=== PATIENT | male | born 1935 | race Caucasian/White ===

== ENCOUNTER 2017-02-12 17:48 | Inpatient (IN) ==
[2017-02-12] MEDS ORDERED: Ondansetron 4 MG/2 ML VIAL IVP PRN (22:47)
[2017-02-12] MEDS ORDERED: Naloxone 0.4 MG/ML INJ IVP PRN (22:47)
--- NOTE | 2017-02-12 22:55 | Internal Med History&Physical ---
Date of Encounter: 02/12/17 Time of Encounter: 22:15 Assessment and Plan (1) TIA (transient ischemic attack) Current visit: Yes Status: Acute Difficult to assess due to poor history, possible TIA. Patient likely at baseline at this time. CT head in the emergency room showed right frontal infarcts, could be subacute or chronic. Check bedside swallow evaluation and resume diet as tolerated. Continue aspirin and statin. Check lipid panel. Check MRI brain, bilateral carotid Doppler and echocardiogram to rule out acute stroke and etiology. Continue neuro checks every 4 hourly. Physical and occupational therapy evaluation. Qualifiers: Transient cerebral ischemia type: unspecified Qualified Code(s): G45.9 - Transient cerebral ischemic attack, unspecified (2) Hyperlipidemia Current visit: Yes Status: Chronic Continue statin and check lipid panel in am. Qualifiers: Hyperlipidemia type: unspecified Qualified Code(s): E78.5 - Hyperlipidemia , unspecified (3) LATANYA (acute kidney injury) Current visit: Yes Status: Acute Serum creatinine in the emergency room was noted to be 1.3, no baseline available. He could be having a component of chronic kidney disease. Continue to monitor serum creatinine closely. (4) Low back pain Current visit: Yes Status: Acute Acute on chronic back pain. CT lumbar spine from September 2016 showed degenerative disc disease at multiple levels along with T12 compression fracture , which is chronic. Continue pain control with PRN IV Morphine and PO [place]ria; check MRI L-spine if persistent and severe pain; Qualifiers: Chronicity: acute Back pain laterality: midline Sciatica presence: without sciatica Qualified Code(s): M54.5 - Low back pain Internal Medicine - H&P: HPI Chief complaint: Low back pain, left-sided weakness Admitted From: Emergency Dept Plans for Post Hospital Care: Home History of present illness: Mr. Johnson is a 81 year old male with history of remote CVA and hypertension was reportedly brought in by family with complaints of slurred speech and possible left-sided weakness for at least the last 2-3 days. Patient reports that he present to the emergency room today due to acute on chronic low back pain associated with left leg weakness, which is chronic for him since left hip surgery last year. He reports no blurred vision or new slurred speech or paresthesias. He lives alone and is ADL independent at baseline, ambulates with his walker. He also has history of previous stroke with residual left- sided weakness according to him. No chest pain, shortness of breath, palpitations or any other complaints. Past Med Surg Social Fam HX - Past Medical History Medical history: CVA, hyperlipidemia, hypertension, osteoporosis, TIA, other ( Seasonal allergies, GERD) Psychiatric history: no psych history - Past Surgical History Surgical History: hip replacement (Left total hip replacement, twice), orthopedic, other (Right rotator cuff tear repair) - Social History Smoking Status: Never smoker Smokeless Tobacco Status: Yes (snuff) Alcohol use: none Drug use: none Occupational status: retired Current living situation: Home - Independent Activity Level: Uses cane/walker Recent Out of Country Travel Within the Last 8 Weeks: No Exposure or Possible Exposure to Illness During Travel: No - Family History Mother Living Status: Father Living Status: Internal Medicine - H&P: Meds Aspirin 81 mg PO DAILY 01/30/16 [History] Atorvastatin [Lipitor] 10 mg PO DAILY 01/30/16 [History] Ferrous Sulfate 324 mg PO DAILY 01/30/16 [History] Lansoprazole [Prevacid] 30 mg PO DAILY 01/30/16 [History] Loratadine [Allergy Relief] 10 mg PO DAILY 01/30/16 [History] Alendronate Sodium [Fosamax] 70 mg PO QWEEK 07/27/16 [History] Tramadol HCl [Ultram] 50 mg PO QID PRN 07/27/16 [History] 3 Allergy/AdvReac Type Severity Reaction Status Date / Time No Known Drug Allergies Allergy See Verified 01/30/16 14:46 Comments All Systems PM: A 10-system review of systems was performed and is negative for pertinent findings except as documented above in the HPI. - Constitutional Constitutional: no chills, no fever(s), no night sweats - EENT Eyes: no change in vision, no discharge, no pain, no photophobia Ears: no ear discharge, no ear pain, no tinnitus Nose, mouth and throat: no dysphagia, no nasal discharge, no neck pain, no sore throat - Cardiovascular Cardiovascular ROS IM: no chest pain, no diaphoresis, no dyspnea, no lightheadedness, no palpitations, no syncope - Respiratory Respiratory: no cough, no dyspnea, no wheezing, no excessive phlegm production - Gastrointestinal Gastrointestinal: no abdominal pain, no diarrhea, no hematemesis, no hematochezia, no melena, no nausea, no vomiting - Musculoskeletal Musculoskeletal ROS IM: back pain - Integumentary Integumentary IM: no rash, no unusual bruising - Neurological Neurological ROS: abnormal speech, lack of coordination, tremor(s), weakness - Hematologic/Lymphatic Hematologic/Lymphatic: no easy bruising - Constitutional Vitals: Temp Pulse Resp BP Pulse Ox 97.8 F 77 18 145/74 95 02/12/17 20:24 02/12/17 20:24 02/12/17 20:24 02/12/17 20:24 02/12/17 20:24 General appearance: Present: A&O X 3 (dysphasia), answers questions appropriately - Respiratory Respiratory exam: Present: CTAB (coarse breath sounds B/L). Absent: accessory muscle use, rales, rhonchi, wheezes - Cardiovascular Cardiovascular exam: Present: RRR, +S1, +S2. Absent: diastolic murmur, gallop, rubs, systolic murmur - GI/Abdominal GI/Abdominal exam: Present: normal bowel sounds, soft, no peritoneal signs. Absent: distended, tenderness - Neurological Exam Neurological exam: Present: CN II-XII intact, oriented X3, no focal deficits ( left LE motor power 4/5, 5/5 in otehr extremities). Absent: pronater drift, facial droop, speech deficit - Skin Skin exam: Present: dry, intact Internal Med - H&P Results - EKG Data -: EKG Interpreted by Myself (Normal sinus rhythm with sinus problems, saad septal infarct) EKG shows normal: sinus rhythm Rate: normal
[2017-02-13] MEDS: *HR* OxyCODONE Immed Rel 5 MG TABLET PO PRN (00:35)
[2017-02-13] MEDS: Acetaminophen 325 MG TABLET PO PRN (05:40)
[2017-02-13 06:30] LABS: Basophils % 0.7 %; Hematocrit 36.2 % (37.5-50.1); Immature Granulocytes % 0.2 % (0-4); Lymphocytes # 0.7 K/mcL (0.6-4.6); Lymphocytes % 15.3 %; Mean Corpuscular HGB Conc 33.1 g/dL (31.6-35.5); Mean Corpuscular Hemoglobin 28.6 pg (28.0-33.3); Mean Corpuscular Volume 86.4 fL (83.0-100.0); Mean Platelet Volume 9.2 fL (9.4-12.4); Monocytes # 0.6 K/mcL (0.0-1.3); Neutrophils # 3.1 K/mcL (1.6-8.9); Platelet Count 117 K/mcL (140-400); Red Blood Count 4.19 M/mcL (4.19-5.50); Red Cell Distribution Width 13.2 % (11.5-14.5); Segmented Neutrophils % 69.8 %
[2017-02-13 06:44] LABS: BUN/Creatinine Ratio 13 (6-26); Blood Urea Nitrogen 12 mg/dL (8-23); Calcium 8.3 mg/dL (8.6-10.3); Carbon Dioxide 24 mEq/L (23-29); Chloride 103 mEq/L (98-107); Chol/HDL Ratio 3.3 (0-4.9); Cholesterol 105 mg/dL (< 200); Glucose 90 mg/dL (70-105); HDL Cholesterol 32 mg/dL (40-59); LDL Cholesterol,Calculated 56 mg/dL (0-99); Osmolality,Calculated 273 (280-300); Potassium 4.1 mEq/L (3.5-5.1); Sodium 132 mEq/L (136-145); Triglycerides 87 mg/dL (< 150); eGFR For African Americans > 60 (> 60); eGFR For Non-African Americans > 60 (> 60)
[2017-02-13] MEDS: Aspirin 81 MG TAB.CHEW PO SCH (10:45)
[2017-02-13] MEDS: *HR* Morphine 2 MG/ML SYRINGE IVP PRN (10:58)
--- NOTE | 2017-02-13 15:54 | Internal Med Progress Note ---
Date of Encounter: 02/13/17 Time of Encounter: 10:25 - Assessment and plan (1) TIA (transient ischemic attack) Current Visit: Yes Status: Acute Assessment and plan: MRI of the brain does not show any acute infarcts. Patient's symptoms have subsided. 40-59% stenosis bilaterally. 2-D echocardiogram shows EF of 54% with mild left frontal and diastolic dysfunction. No PFO. Patient may have had a TIA but no acute stroke. Will continue aspirin and statin. No changes to medication regimen at this time. Continue PTOT. Moderate risk for complications. Qualifiers: Transient cerebral ischemia type: other Qualified Code(s): G45.8 - Other transient cerebral ischemic attacks and related syndromes (2) LATANYA (acute kidney injury) Current Visit: Yes Status: Resolved Assessment and plan: Back to baseline. (3) Hyperlipidemia Current Visit: Yes Status: Chronic Assessment and plan: Continue Lipitor. Patient has normal LDL. Total cholesterol 105. Qualifiers: Hyperlipidemia type: unspecified Qualified Code(s): E78.5 - Hyperlipidemia , unspecified (4) Low back pain Current Visit: Yes Status: Acute Assessment and plan: Acute on chronic low back pain. Will treat symptomatically. PTOT consult. Recommend placement to skilled rehabilitation. Will consult social service manager to make necessary arrangements. Qualifiers: Chronicity: acute Back pain laterality: midline Sciatica presence: without sciatica Qualified Code(s): M54.5 - Low back pain - Subjective Interval history: Patient is doing well this morning. Does not have any known longer reporting focal weakness but does continue to have generalized weakness in his upper and lower extremities. No slurred speech. No facial droop - Constitutional Vitals: Temp Pulse Resp BP Pulse Ox 99.7 F H 84 16 121/67 94 02/13/17 10:56 02/13/17 13:37 02/13/17 13:37 02/13/17 10:56 02/13/17 10:56 General appearance: Present: A&O X 3, answers questions appropriately - Neck Neck exam general surgery: Present: supple, trachea midline. Absent: lymphadenopathy - Respiratory Respiratory exam: Present: CTAB. Absent: accessory muscle use, rales, rhonchi, wheezes - Cardiovascular Cardiovascular exam: Present: RRR, +S1, +S2. Absent: diastolic murmur, gallop, rubs, systolic murmur - GI/Abdominal GI/Abdominal exam: Present: normal bowel sounds, soft, no peritoneal signs. Absent: distended, tenderness - Extremities Exam Extremities exam: Present: warm, radial pulses palpable and symmetrical. Absent : calf tenderness, cyanotic, pedal edema - Neurological Exam Neurological exam: Present: alert, CN II-XII intact, oriented X3, no focal deficits, strengths equal and symetr throughout. Absent: facial droop, speech deficit Internal Medicine: Result - Labs CBC & Chem 7: 02/13/17 06:18 02/13/17 06:18 Labs: Short CBC 02/13/17 Range/Units 06:18 WBC 4.4 (4.3-11.1) K/mcL Hgb 12.0 L (12.9-16.9) g/dL Hct 36.2 L (37.5-50.1) % Plt Count 117 L (140-400) K/mcL Neutrophils # 3.1 (1.6-8.9) K/mcL BMP 02/13/17 06:18 Sodium 132 L Potassium 4.1 Chloride 103 Carbon Dioxide 24 BUN 12 Creatinine 0.94 Glucose 90 Calcium 8.3 L Cardiac Enzymes 02/12/17 02/13/17 02/13/17 Range/Units 23:06 06:18 12:41 Troponin I < 0.03 < 0.03 < 0.03 (< 0.04) ng/mL - Impressions Impressions Brain MRI 02/13/17 08:58 IMPRESSION: 1. Motion degrades images limiting evaluation. 2. No acute intracranial abnormality. No acute infarct. 3. Mild chronic microvascular ischemic changes. D/ / Mao Charlton MD / Mao Charlton MD Interpreting Provider: Mao Charlton MD Echocardiogram 02/13/17 22:49 Impressions: LVEF 55%. Mild left ventricular diastolic dysfunction. Normal right ventricular structure and function. Mild aortic regurgitation. Mild mitral regurgitation. Mild tricuspid regurgitation. No pulmonary hypertension. No PFO with saline contrast injection. Left Ventricular Wall Motion: Rest Echo Findings All wall segments showed normal motion. Findings: Study Quality * Technically challenging due to suboptimal echocardiographic windows. ECG Findings * Normal sinus rhythm. Left Ventricle * LVEF 55%. * Normal LV chamber size, wall thickness and function. * Mild left ventricular diastolic dysfunction. Right Ventricle * Normal right ventricular structure and function. Left Atrium * Severely dilated left atrium. Right Atrium * Mildly dilated right atrium. Aortic Valve * No aortic stenosis. * Mild aortic regurgitation. * Aortic valve not well visualized. Mitral Valve * Mildly sclerotic mitral valve leaflets. * No mitral stenosis. * Mild mitral regurgitation. * Mild-moderate mitral annular calcification Tricuspid Valve * Tricuspid valve not well visualized. * Mild tricuspid regurgitation. Pulmonic Valve * Pulmonic valve is not well visualized. * Suboptimal Doppler interrogation. Aorta * Not well visualized. Pulmonary Artery * Pulmonary artery not well visualized. Interatrial Septum * Interatrial septum not well evaluated. Pericardium * There is no pericardial effusion present. IVC * The IVC is not well evaluated. Consult Discharge Plan - Plan Referrals: Brice Mejia MD [Primary Care Provider] -
[2017-02-14] MEDS: Aspirin 81 MG TAB.CHEW PO SCH (08:48)
[2017-02-14] MEDS: *HR* OxyCODONE Immed Rel 5 MG TABLET PO PRN ×2 (08:48→16:40)
[2017-02-14] MEDS: *HR* Morphine 2 MG/ML SYRINGE IVP PRN ×2 (12:51→21:46)
--- NOTE | 2017-02-14 13:42 | Discharge Summary ---
Date of Encounter: 02/14/17 Time of Encounter: 13:40 - Discharge Diagnosis (1) TIA (transient ischemic attack) Priority: Primary Status: Acute Qualifiers: Transient cerebral ischemia type: other Qualified Code(s): G45.8 - Other transient cerebral ischemic attacks and related syndromes (2) LATANYA (acute kidney injury) Priority: Secondary Status: Resolved (3) Hyperlipidemia Priority: Secondary Status: Chronic Qualifiers: Hyperlipidemia type: unspecified Qualified Code(s): E78.5 - Hyperlipidemia , unspecified (4) Low back pain Priority: Secondary Status: Acute Qualifiers: Chronicity: acute Back pain laterality: midline Sciatica presence: without sciatica Qualified Code(s): M54.5 - Low back pain - Discharge Medications Home Medications: Aspirin 81 mg PO DAILY 01/30/16 [History] Atorvastatin [Lipitor] 10 mg PO DAILY 01/30/16 [History] Ferrous Sulfate 324 mg PO DAILY 01/30/16 [History] Loratadine [Allergy Relief] 10 mg PO DAILY 01/30/16 [History] Alendronate Sodium [Fosamax] 70 mg PO QWEEK 07/27/16 [History] Tramadol HCl [Ultram] 50 mg PO QID PRN 07/27/16 [History] Pantoprazole Sodium [Protonix] 40 mg PO DAILY 02/13/17 [History] Allergies/Adverse Reactions: 3 Allergy/AdvReac Type Severity Reaction Status Date / Time No Known Drug Allergies Allergy See Verified 01/30/16 14:46 Comments Procedures/tests Complete & Pending: Procedures Performed prior 72 hours Category Date Time Status MR head/brain wo con [MR] Routine MRI 02/13/17 08:58 Completed EV carotid duplex imaging BI Routine Y 02/13/17 22:49 Completed EV echo with saline Routine Y 02/13/17 22:49 Completed Date of admission: 02/12/17 20:06 Primary care physician: Brice Mejia MD Consults: 02/12/17 22:48 Consult to Occupational Therapy [CONS] Routine Comment: Evaluate, develop and implement POC Reason for Consult: Left LE weakness, B/L hand tremors, lives alone Consult to Physical Therapy [CONS] Routine Comment: Evaluate, develop and implement POC Reason for Consult: Left LE weakness, B/L hand tremors, lives alone 02/13/17 01:27 Consult to Sports Team Marketing Intern [CONS] Routine Reason for SW Consult: D/C palnning and home care need evaluation. Discharging clinician: Hilda Weller Anticipated date of discharge: 02/14/17 - Patient Status Disposition: Home Health Service Condition: Fair Functional capacity at discharge: uses cane/walker Overall status at discharge: patient is progressing back to baseline (with assistance) - Discharge Instructions Instructions: Transient Ischemic Attack (GEN), Atrial Fibrillation (DC), Acute Kidney Injury (DC), Acute Kidney Injury (GEN), Anemia (GEN) Follow Up With: Brice Mejia MD [Primary Care Provider] - 02/20/17 1:45 pm - Diet and Activity Activity: as per physical therapy Diet: low fat, low cholesterol, low salt diet Hospital course: Mr. Johnson is a 81 year old male patient with a history of prior CVA and hypertension who was up and was brought into the ER with complaints of slurred speech and possible left-sided weakness. His symptoms had been going on for 2- 3 days prior to presentation. The patient was only complaining mainly of acute on chronic back pain. He also reported that his left leg weakness was chronic for him. Nevertheless he was hospitalized workup for possible TIA. He underwent MRI of the brain which did not show any acute infarct. He did have 40 -50% carotid stenosis bilaterally. He has been on aspirin and statin which she will continue to take. Physical therapy was consulted and they recommended placing patient in inpatient swing bed. However, per insurance recommendations he did not qualify for that. As such social science teacher has made arrangements for him to receive home health with PT/OT and nursing. I discussed this with the patient and advised that he stay with some family members or have some family members stay with him all the time. He said he will talk to his daughter and his nephew and see about having someone stay with him. Medically, he is stable for discharge once the safe discharge plan can be arranged for him along with home health. - Time Spent with Patient Total time spent providing and/or coordinating discharge services: Greater than 30 minutes (35 min) - Constitutional Vitals: Temp Pulse Resp BP Pulse Ox 99.4 F 112 16 100/63 92 02/14/17 11:10 02/14/17 12:53 02/14/17 12:53 02/14/17 11:10 02/14/17 11:10 General appearance: Present: cooperative, A&O X 3, no acute distress, answers questions appropriately - Neck Neck exam general surgery: Present: supple, trachea midline. Absent: lymphadenopathy - Respiratory Respiratory exam: Present: CTAB. Absent: accessory muscle use, rales, rhonchi, wheezes - Cardiovascular Cardiovascular exam: Present: RRR, +S1, +S2. Absent: diastolic murmur, gallop, rubs, systolic murmur - Neurological Exam Neurological exam: Present: alert, CN II-XII intact, oriented X3, no focal deficits, strengths equal and symetr throughout. Absent: facial droop, speech deficit - Skin Skin exam: Present: dry, intact
--- NOTE | 2017-02-14 13:44 | Physician Discharge Referral ---
Home Health/Hosp Referral Info Transfer to: Home Health Provider in Charge Post Discharge: PCP - Diagnosis (1) TIA (transient ischemic attack) Priority: Primary Status: Acute (2) LATANYA (acute kidney injury) Priority: Secondary Status: Resolved (3) Hyperlipidemia Priority: Secondary Status: Chronic (4) Low back pain Priority: Secondary Status: Acute - Respiratory Orders Smoking Cessation: Smoking cessation has been advised. For more information, call the [place] Tobacco Quit Line at 1-765-OGFE-NOW. - Diet/Nutrition Diet/Nutrition Orders: Cardiac - Activity Activity Orders: Walker (with assistance) - Services Needed Following services are medically necessary services: Nursing, Home Health Aide, Physical Therapy, Occupational Therapy - Transfer Medications Home Medications: Aspirin 81 mg PO DAILY 01/30/16 [History] Atorvastatin [Lipitor] 10 mg PO DAILY 01/30/16 [History] Ferrous Sulfate 324 mg PO DAILY 01/30/16 [History] Loratadine [Allergy Relief] 10 mg PO DAILY 01/30/16 [History] Alendronate Sodium [Fosamax] 70 mg PO QWEEK 07/27/16 [History] Tramadol HCl [Ultram] 50 mg PO QID PRN 07/27/16 [History] Pantoprazole Sodium [Protonix] 40 mg PO DAILY 02/13/17 [History] Allergies/Adverse Reactions: 3 Allergy/AdvReac Type Severity Reaction Status Date / Time No Known Drug Allergies Allergy See Verified 01/30/16 14:46 Comments Certification: Further, I certify that my clinical findings support that this patient is homebound (i.e. absences from home require considerable and taxing effort and are for medical reasons or faith services or infrequently or short duration when for other reasons) because: Homebound Reason: Patient requires assistance of a person or device to safely leave home Attestation: My signature below is to certify that this patient is under my care and that I, or nurse practitioner, or a physician's physician assistant working with me, has a face-to -face encounter with this patient.
--- NOTE | 2017-02-14 17:57 | Event Note ---
Date of Encounter: 02/14/17 Time of Encounter: 17:56 Notified by the nurse that no family members available to stay with patient at home. Patient unsafe to stay by himself at this time. We will hold discharge until patient has a safe discharge plan.
[2017-02-15] MEDS ORDERED: *HR* Heparin 5,000 UNIT/ML VIAL IVP PRN ×4 (04:55→06:21)
[2017-02-15] MEDS ORDERED: *HR* Heparin 5,000 UNIT/ML VIAL IVP ONE ×2 (04:55→06:21)
--- NOTE | 2017-02-15 05:02 | Event Note ---
Date of Encounter: 02/15/17 Time of Encounter: 04:59 The RN paged me earlier about new lung sound findings. She stated that she heard ronchi in patient's lungs that were not present on her initial assessment. I repeated the lung exam and agreed with the RN. I heard ronchi bilaterally and ordered a CXR. CXR showed perihilar and bibasilar ground-glass opacities with probable small pleural effusions. Pattern suspected to represent developing pulmonary edema. No further orders at that time. RN paged me again and noticed changes on his monitor. I ordered EKG and it showed A-fib with rate controlled. Patient then mentioned he had A-fib in the past but was never treated. Patient denies any history of bleeding and does not know why he was never placed on anticoagulation. Dr. Amanda Rosales ordered a heparin drip. Patient denies any shortness of breath or chest pain at this time. No new murmurs heard on exam.
[2017-02-15 05:56] LABS: Hematocrit 35.7 % (37.5-50.1); Hemoglobin 11.8 g/dL (12.9-16.9); Mean Corpuscular HGB Conc 33.1 g/dL (31.6-35.5); Mean Corpuscular Hemoglobin 28.4 pg (28.0-33.3); Mean Corpuscular Volume 85.8 fL (83.0-100.0); Mean Platelet Volume 9.5 fL (9.4-12.4); Platelet Count 102 K/mcL (140-400); Red Blood Count 4.16 M/mcL (4.19-5.50); Red Cell Distribution Width 13.2 % (11.5-14.5)
[2017-02-15 06:02] LABS: INR 1.1; Prothrombin Time 12.1 Seconds (9.4-12.1)
[2017-02-15 06:05] LABS: Activated Partial Thrombo Time 32.1 Seconds (26.0-36.0)
[2017-02-15] MEDS: Heparin 25,000 UNIT/500 ML D5W 25,000 UNIT/500 ML BAG IVC SCH (06:25)
[2017-02-15] MEDS: Aspirin 81 MG TAB.CHEW PO SCH (08:38)
[2017-02-15] MEDS ORDERED: Furosemide 20 MG/2 ML VIAL IVP ONE (09:40)
[2017-02-15 14:35] LABS: Activated Partial Thrombo Time 181.2 Seconds (26.0-36.0)
[2017-02-15 14:39] LABS: Heparin anti-factor XA UFH 0.52 IU/mL (0.30-0.70)
[2017-02-15] MEDS: *HR* OxyCODONE Immed Rel 5 MG TABLET PO PRN ×2 (16:06→22:02)
--- NOTE | 2017-02-15 16:35 | Internal Med Progress Note ---
Date of Encounter: 02/15/17 Time of Encounter: 09:50 - Assessment and plan (1) Atrial fibrillation and flutter Current Visit: Yes Status: Acute Assessment and plan: Paroxysmal A. fib. Rate controlled. Given his history of TIA and prior strokes , he will need to be on anticoagulation. Started on IV heparin. Will start Coumadin today. Does have increased risk for falls. We will transition patient to inpatient as he was in the hospital for at least 2 midnights. Moderate risk for complications. (2) TIA (transient ischemic attack) Current Visit: Yes Status: Acute Assessment and plan: Suspected of having TIA. Cannot completely rule out TIA. However MRI did not show any acute infarcts. Patient does have chronic left lower extremity weakness from prior stroke. 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 Continue physical therapy. Qualifiers: Chronicity: acute Back pain laterality: midline Sciatica presence: without sciatica Qualified Code(s): M54.5 - Low back pain (6) Ambulatory dysfunction Current Visit: Yes Status: Acute Assessment and plan: Patient unable to ambulate on his own and is unsafe for discharge home if he is to stay alone. 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 High risk for falls especially as patient will now be on anticoagulation due to atrial fibrillation. (7) Diastolic heart failure Current Visit: Yes Status: Acute Assessment and plan: Patient's chest x-ray done overnight showed features of possible developing pulmonary edema. Patient received IV Lasix and has had good urine output. Patient's blood pressure is currently low. Hold off on further doses of Lasix while we monitor blood pressure closely. Qualifiers: Heart failure chronicity: chronic Qualified Code(s): I50.32 - Chronic diastolic (congestive) heart failure (8) Hypotension Current Visit: Yes Status: Acute Assessment and plan: Likely due to Lasix use and morphine use. Will stop IV morphine. Monitor blood pressure closely. Qualifiers: Hypotension type: hypotension due to drug Qualified Code(s): I95.2 - Hypotension due to drugs - Subjective Interval history: Patient complains of some abdominal discomfort after he had a bowel movement this morning. Back pain is improving. His discharge was held last evening as he was unable to find family members who would be able to take care of him and lives with him at home. She did develop atrial fibrillation overnight. He is unsure whether he has a history of A. fib. Denies any palpitations or chest pain at this time. - Constitutional Vitals: Temp Pulse Resp BP Pulse Ox 98.2 F 82 14 94/60 92 02/15/17 11:37 02/15/17 11:37 02/15/17 11:37 02/15/17 11:37 02/15/17 11:37 General appearance: Present: cooperative, A&O X 3, no acute distress, answers questions appropriately - Neck Neck exam general surgery: Present: supple, trachea midline. Absent: lymphadenopathy - Respiratory Respiratory exam: Present: CTAB. Absent: accessory muscle use, rales, rhonchi, wheezes - Cardiovascular Cardiovascular exam: Present: irregular rhythm, +S1, +S2. Absent: diastolic murmur, gallop, rubs, systolic murmur - GI/Abdominal GI/Abdominal exam: Present: normal bowel sounds, soft, no peritoneal signs. Absent: distended, tenderness - Extremities Exam Extremities exam: Present: warm, radial pulses palpable and symmetrical. Absent : calf tenderness, cyanotic, pedal edema Internal Medicine: Result - Labs CBC & Chem 7: 02/15/17 05:37 02/13/17 06:18 Labs: Short CBC 02/15/17 Range/Units 05:37 WBC 5.9 (4.3-11.1) K/mcL Hgb 11.8 L (12.9-16.9) g/dL Hct 35.7 L (37.5-50.1) % Plt Count 102 L (140-400) K/mcL - ABG Interpretation ABG results: PT/INR, D-dimer PT 12.1 Seconds (9.4-12.1) 02/15/17 05:37 - Impressions Impressions Chest X-Ray 02/14/17 21:30 IMPRESSION: Perihilar and bibasilar ground-glass opacities with probable small pleural effusions. Pattern suspected to represent developing pulmonary edema. A viral infection cannot be excluded. D/ / Amari Mitchell MD / Amari Mitchell MD Interpreting Provider: Amari Mitchell MD Consult Discharge Plan - Plan Instructions: Transient Ischemic Attack (GEN), Atrial Fibrillation (DC), Acute Kidney Injury (DC), Acute Kidney Injury (GEN), Anemia (GEN) Referrals: Brice Mejia MD [Primary Care Provider] - 02/20/17 1:45 pm
[2017-02-15] MEDS ORDERED: Warfarin perPT PO PRN (18:00)
--- NOTE | 2017-02-15 19:24 | Electrocardiograph Report ---
[address] [place], [place] [address] Test Date: 2017-02-15 Pat Name: Fernando Johnson Department: 111 Room: 2N3 Gender: M Food Cooking Machine Operator: : [id number] Requested By: Hlida Weller Order Number: [id number] Reading MD: Pranay Bowman MD Measurements Intervals [place] Rate: 78 P: IN: 0 QRS: 39 QRSD: 79 T: 38 QT: 361 QTc: 394 Interpretive Statements ATRIAL FIBRILLATION Electronically Signed On 02-15-2017 19:22:59 EST by Pranay Bowman MD
[2017-02-15] MEDS: *HR* Warfarin 5 MG TABLET PO SCH (22:02)
[2017-02-16] MEDS: *HR* OxyCODONE Immed Rel 5 MG TABLET PO PRN ×2 (05:01→11:03)
[2017-02-16 05:16] LABS: INR 1.2; Prothrombin Time 12.9 Seconds (9.4-12.1)
[2017-02-16] MEDS: Aspirin 81 MG TAB.CHEW PO SCH (09:13)
[2017-02-16] MEDS: Heparin 25,000 UNIT/500 ML D5W 25,000 UNIT/500 ML BAG IVC SCH (09:15)
--- NOTE | 2017-02-16 16:01 | Internal Med Progress Note ---
Date of Encounter: 02/16/17 Time of Encounter: 12:20 - Assessment and plan (1) Atrial fibrillation and flutter Current Visit: Yes Status: Acute Assessment and plan: Paroxysmal A. fib. Rate controlled. Given his history of TIA and prior strokes , he will need to be on anticoagulation. Started him on Coumadin.. INR still sub therapeutic @ 1.2 Will switch him to Lovenox from Heparin to bridge with Coumadin (2) TIA (transient ischemic attack) Current Visit: Yes Status: Acute Assessment and plan: Suspected of having TIA -- R/o CVA His MRI did not show any acute infarcts. Patient does have chronic left lower extremity weakness from prior stroke. 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 (5) Ambulatory dysfunction Current Visit: Yes Status: Acute Assessment and plan: Patient unable to ambulate on his own and is unsafe for discharge home if he is to stay alone. 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 High risk for falls especially as patient will now be on anticoagulation due to atrial fibrillation. May need ECF placement for short term PT / OT SW working on it (6) Diastolic heart failure Current Visit: Yes Status: Acute Assessment and plan: mild decompensation will cont gentle diuresis only due to BP issues His CXR showed mild vascular congestion mostly due to CHF exacerbation Qualifiers: Heart failure chronicity: acute on chronic Qualified Code(s): I50.33 - Acute on chronic diastolic (congestive) heart failure (7) Acute respiratory failure with hypoxia Current Visit: Yes Status: Acute Assessment and plan: Due to CHF exacerbation + Deconditioning cont PO Lasix PT / OT Try to wean him off the O2 as he tolerates - Subjective Interval history: Mr. Johnson is a 81 year old male with history of remote CVA and hypertension was reportedly brought in by family with complaints of slurred speech and possible left-sided weakness for at least the last 2-3 days. Patient reports that he present to the emergency room today due to acute on chronic low back pain associated with left leg weakness, which is chronic for him since left hip surgery last year. He reports no blurred vision or new slurred speech or paresthesias. He lives alone and is ADL independent at baseline, ambulates with his walker. He also has history of previous stroke with residual left- sided weakness according to him. Pt was admitted in the hospital and placed him on training manager. All his work up for CVA came back as negative. He denied any chest pain, shortness of breath , palpitations or any other complaints. - Constitutional Vitals: Temp Pulse Resp BP Pulse Ox 99.1 F 76 15 118/76 94 02/16/17 10:48 02/16/17 10:48 02/16/17 10:48 02/16/17 10:48 02/16/17 10:48 General appearance: Present: cooperative, A&O X 3, no acute distress, answers questions appropriately - Head Head exam: Present: atraumatic, normal inspection - Neck Neck exam general surgery: Present: supple - Respiratory Respiratory exam: Present: decreased breath sounds. Absent: rales, respiratory distress, rhonchi, wheezes - Cardiovascular Cardiovascular exam: Present: RRR, +S1, +S2. Absent: tachycardia - GI/Abdominal GI/Abdominal exam: Present: normal bowel sounds, soft. Absent: rebound, rigid, tenderness - Extremities Exam Extremities exam: Absent: calf tenderness, pedal edema, tenderness - Neurological Exam Neurological exam: Present: alert, oriented X3. Absent: pronater drift, speech deficit - Psychiatric Psychiatric exam: Present: depressed Internal Medicine: Result - Labs CBC & Chem 7: 02/15/17 05:37 02/13/17 06:18 - ABG Interpretation ABG results: PT/INR, D-dimer PT 12.9 Seconds (9.4-12.1) H 02/16/17 04:22 Consult Discharge Plan - Plan Instructions: Transient Ischemic Attack (GEN), Atrial Fibrillation (DC), Acute Kidney Injury (DC), Acute Kidney Injury (GEN), Anemia (GEN) Referrals: Brice Mejia MD [Primary Care Provider] - 02/20/17 1:45 pm
[2017-02-16] MEDS: *HR* Warfarin 5 MG TABLET PO SCH (18:27)
[2017-02-16] MEDS: *HR* Enoxaparin 80 MG/0.8 ML SYRINGE SQ SCH (18:28)
[2017-02-17 04:38] LABS: Basophils % 0.2 %; Eosinophils % 0.2 %; Hemoglobin 11.9 g/dL (12.9-16.9); Lymphocytes # 1.6 K/mcL (0.6-4.6); Lymphocytes % 33.3 %; Mean Corpuscular HGB Conc 33.1 g/dL (31.6-35.5); Mean Corpuscular Hemoglobin 28.2 pg (28.0-33.3); Mean Corpuscular Volume 85.3 fL (83.0-100.0); Monocytes # 0.7 K/mcL (0.0-1.3); Neutrophils # 2.5 K/mcL (1.6-8.9); Platelet Count 105 K/mcL (140-400); Red Blood Count 4.22 M/mcL (4.19-5.50); Segmented Neutrophils % 52.3 %
[2017-02-17 04:41] LABS: INR 1.4; Prothrombin Time 15.5 Seconds (9.4-12.1)
[2017-02-17 04:54] LABS: BUN/Creatinine Ratio 15 (6-26); Blood Urea Nitrogen 14 mg/dL (8-23); Calcium 8.3 mg/dL (8.6-10.3); Carbon Dioxide 28 mEq/L (23-29); Chloride 97 mEq/L (98-107); Glucose 91 mg/dL (70-105); Osmolality,Calculated 274 (280-300); Potassium 3.5 mEq/L (3.5-5.1); Sodium 132 mEq/L (136-145); eGFR For African Americans > 60 (> 60); eGFR For Non-African Americans > 60 (> 60)
[2017-02-17] MEDS: *HR* Enoxaparin 80 MG/0.8 ML SYRINGE SQ SCH ×2 (05:15→17:25)
[2017-02-17] MEDS: Aspirin 81 MG TAB.CHEW PO SCH (09:04)
[2017-02-17] MEDS: Furosemide 20 MG TABLET PO SCH (09:04)
--- NOTE | 2017-02-17 17:19 | Internal Med Progress Note ---
Date of Encounter: 02/17/17 Time of Encounter: 17:17 - Assessment and plan (1) Atrial fibrillation and flutter Current Visit: Yes Status: Acute Assessment and plan: Paroxysmal A. fib. Rate controlled. Given his history of TIA and prior strokes , he will need to be on anticoagulation. Started him on Coumadin.. INR still sub therapeutic @ 1.4 Cont Lovenox to bridge with Coumadin (2) TIA (transient ischemic attack) Current Visit: Yes Status: Acute Assessment and plan: Suspected of having TIA -- R/o CVA His MRI did not show any acute infarcts. Patient does have chronic left lower extremity weakness from prior stroke. 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 (5) Ambulatory dysfunction Current Visit: Yes Status: Acute Assessment and plan: Patient unable to ambulate on his own and is unsafe for discharge home if he is to stay alone. 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 High risk for falls especially as patient will now be on anticoagulation due to atrial fibrillation. May need ECF placement for short term PT / OT SW working on it (6) Diastolic heart failure Current Visit: Yes Status: Acute Assessment and plan: mild decompensation will cont gentle diuresis only due to BP issues His CXR showed mild vascular congestion mostly due to CHF exacerbation Qualifiers: Heart failure chronicity: acute on chronic Qualified Code(s): I50.33 - Acute on chronic diastolic (congestive) heart failure (7) Acute respiratory failure with hypoxia Current Visit: Yes Status: Acute Assessment and plan: Due to CHF exacerbation + Deconditioning cont PO Lasix will start him on Duoneb PRN PT / OT Try to wean him off the O2 as he tolerates - Subjective Interval history: Mr. Johnson is a 81 year old male with history of remote CVA and hypertension was reportedly brought in by family with complaints of slurred speech and possible left-sided weakness for at least the last 2-3 days. Patient reports that he present to the emergency room today due to acute on chronic low back pain associated with left leg weakness, which is chronic for him since left hip surgery last year. He reports no blurred vision or new slurred speech or paresthesias. He lives alone and is ADL independent at baseline, ambulates with his walker. He also has history of previous stroke with residual left- sided weakness according to him. Pt was admitted in the hospital and placed him on nutrition coordinator. All his work up for CVA came back as negative. He denied any chest pain, shortness of breath , palpitations or any other complaints. No GI / symptoms - Constitutional Vitals: Temp Pulse Resp BP Pulse Ox 97.9 F 85 15 111/74 92 02/17/17 16:42 02/17/17 16:42 02/17/17 16:42 02/17/17 16:42 02/17/17 16:42 General appearance: Present: cooperative, A&O X 3, no acute distress, answers questions appropriately - Head Head exam: Present: atraumatic, normal inspection - Neck Neck exam general surgery: Present: supple - Respiratory Respiratory exam: Present: decreased breath sounds. Absent: rales, respiratory distress, rhonchi, wheezes - Cardiovascular Cardiovascular exam: Present: irregular rhythm, +S1, +S2. Absent: tachycardia - GI/Abdominal GI/Abdominal exam: Present: normal bowel sounds, soft. Absent: rebound, rigid, tenderness - Extremities Exam Extremities exam: Absent: calf tenderness, pedal edema, tenderness - Back Exam Back exam: Absent: CVA tenderness (L), CVA tenderness (R) - Neurological Exam Neurological exam: Present: alert, oriented X3 - Psychiatric Psychiatric exam: Present: normal affect, normal mood Internal Medicine: Result - Labs CBC & Chem 7: 02/17/17 03:34 02/17/17 03:34 Labs: Short CBC 02/17/17 Range/Units 03:34 WBC 4.7 (4.3-11.1) K/mcL Hgb 11.9 L (12.9-16.9) g/dL Hct 36.0 L (37.5-50.1) % Plt Count 105 L (140-400) K/mcL Neutrophils # 2.5 (1.6-8.9) K/mcL BMP 02/17/17 03:34 Sodium 132 L Potassium 3.5 Chloride 97 L Carbon Dioxide 28 BUN 14 Creatinine 0.92 Glucose 91 Calcium 8.3 L - ABG Interpretation ABG results: PT/INR, D-dimer PT 15.5 Seconds (9.4-12.1) H 02/17/17 03:34 Consult Discharge Plan - Plan Instructions: Transient Ischemic Attack (GEN), Atrial Fibrillation (DC), Acute Kidney Injury (DC), Acute Kidney Injury (GEN), Anemia (GEN) Referrals: Brice Mejia MD [Primary Care Provider] - 02/20/17 1:45 pm
[2017-02-17] MEDS ORDERED: Ipratropium/Albuterol Neb 3 ML IH PRN (17:20)
[2017-02-17] MEDS: *HR* Warfarin 5 MG TABLET PO SCH (17:25)
[2017-02-17] MEDS: *HR* OxyCODONE Immed Rel 5 MG TABLET PO PRN (17:27)
[2017-02-18] MEDS: *HR* Enoxaparin 80 MG/0.8 ML SYRINGE SQ SCH (06:32)
[2017-02-18] MEDS: *HR* OxyCODONE Immed Rel 5 MG TABLET PO PRN ×2 (06:33→21:53)
[2017-02-18 07:10] LABS: INR 2.1; Prothrombin Time 23.1 Seconds (9.4-12.1)
[2017-02-18] MEDS: Aspirin 81 MG TAB.CHEW PO SCH (09:04)
[2017-02-18] MEDS: Furosemide 20 MG TABLET PO SCH (09:04)
--- NOTE | 2017-02-18 15:51 | Internal Med Progress Note ---
Date of Encounter: 02/18/17 Time of Encounter: 15:49 - Assessment and plan (1) Atrial fibrillation and flutter Current Visit: Yes Status: Acute Assessment and plan: Paroxysmal A. fib. Rate controlled. Given his history of TIA and prior strokes , he will need to be on anticoagulation. Started him on Coumadin.. INR is therapeutic today @ 2.1 So will d/c Lovenox (2) TIA (transient ischemic attack) Current Visit: Yes Status: Acute Assessment and plan: Suspected of having TIA -- R/o CVA His MRI did not show any acute infarcts. 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 (5) Ambulatory dysfunction Current Visit: Yes Status: Acute Assessment and plan: Patient unable to ambulate on his own and is unsafe for discharge home if he has to stay alone. 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 High risk for falls especially as patient will now be on anticoagulation due to atrial fibrillation. May need ECF placement for short term PT / OT SW working on it (6) Diastolic heart failure Current Visit: Yes Status: Acute Assessment and plan: mild decompensation will cont gentle diuresis with Lasox 20mg PO daily only due to BP issues His CXR showed mild vascular congestion mostly due to CHF exacerbation Qualifiers: Heart failure chronicity: acute on chronic Qualified Code(s): I50.33 - Acute on chronic diastolic (congestive) heart failure (7) Acute respiratory failure with hypoxia Current Visit: Yes Status: Acute Assessment and plan: Due to CHF exacerbation + Deconditioning cont PO Lasix cont on Duoneb PRN PT / OT Try to wean him off the O2 as he tolerates - Subjective Interval history: Mr. Johnson is a 81 year old male with history of remote CVA and hypertension was reportedly brought in by family with complaints of slurred speech and possible left-sided weakness for at least the last 2-3 days. Patient reports that he present to the emergency room today due to acute on chronic low back pain associated with left leg weakness, which is chronic for him since left hip surgery last year. He reports no blurred vision or new slurred speech or paresthesias. He lives alone and is ADL independent at baseline, ambulates with his walker. He also has history of previous stroke with residual left- sided weakness according to him. Pt was admitted in the hospital and placed him on assisted living associate. All his work up for CVA came back as negative. He denied any chest pain, shortness of breath , palpitations or any other complaints. No GI / symptoms. No events over night - Constitutional Vitals: Temp Pulse Resp BP Pulse Ox 97.7 F 79 20 96/70 91 02/18/17 15:21 02/18/17 15:21 02/18/17 15:21 02/18/17 15:21 02/18/17 15:21 General appearance: Present: cooperative, A&O X 3, no acute distress, answers questions appropriately - Head Head exam: Present: atraumatic, normal inspection - Neck Neck exam general surgery: Present: supple - Respiratory Respiratory exam: Present: decreased breath sounds. Absent: rales, respiratory distress, rhonchi, wheezes - Cardiovascular Cardiovascular exam: Present: irregular rhythm, +S1, +S2. Absent: tachycardia - GI/Abdominal GI/Abdominal exam: Present: normal bowel sounds, soft. Absent: rebound, rigid, tenderness - Extremities Exam Extremities exam: Absent: calf tenderness, pedal edema, tenderness - Back Exam Back exam: Absent: CVA tenderness (L), CVA tenderness (R) - Neurological Exam Neurological exam: Present: alert, oriented X3, strengths equal and symetr throughout. Absent: pronater drift, facial droop, speech deficit - Psychiatric Psychiatric exam: Present: normal affect, normal mood Internal Medicine: Result - Labs CBC & Chem 7: 02/17/17 03:34 02/17/17 03:34 - ABG Interpretation ABG results: PT/INR, D-dimer PT 23.1 Seconds (9.4-12.1) H 02/18/17 06:28 Consult Discharge Plan - Plan Instructions: Transient Ischemic Attack (GEN), Atrial Fibrillation (DC), Acute Kidney Injury (DC), Acute Kidney Injury (GEN), Anemia (GEN) Referrals: Brice Mejia MD [Primary Care Provider] - 02/20/17 1:45 pm
[2017-02-18] MEDS ORDERED: *HR* Warfarin 2.5 MG TABLET PO ONE (18:00)
[2017-02-19] MEDS: *HR* OxyCODONE Immed Rel 5 MG TABLET PO PRN (03:55)
[2017-02-19 08:40] LABS: INR 2.7; Prothrombin Time 30.2 Seconds (9.4-12.1)
[2017-02-19] MEDS: Aspirin 81 MG TAB.CHEW PO SCH (09:11)
[2017-02-19] MEDS: Furosemide 20 MG TABLET PO SCH (09:11)
--- NOTE | 2017-02-19 11:28 | Internal Med Progress Note ---
Date of Encounter: 02/19/17 - Constitutional Vitals: Temp Pulse Resp BP Pulse Ox 98.2 F 84 14 111/80 96 02/19/17 07:40 02/19/17 07:40 02/19/17 07:40 02/19/17 07:40 02/19/17 07:40 General appearance: Present: cooperative, A&O X 3, no acute distress, answers questions appropriately Internal Medicine: Result - Labs CBC & Chem 7: 02/17/17 03:34 02/17/17 03:34 - ABG Interpretation ABG results: PT/INR, D-dimer PT 30.2 Seconds (9.4-12.1) H 02/19/17 08:11 Consult Discharge Plan - Plan Instructions: Transient Ischemic Attack (GEN), Atrial Fibrillation (DC), Acute Kidney Injury (DC), Acute Kidney Injury (GEN), Anemia (GEN) Referrals: Brice Mejia MD [Primary Care Provider] - 02/20/17 1:45 pm
--- NOTE | 2017-02-19 11:32 | Discharge Summary ---
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 - Discharge Medications Prescriptions: Tramadol HCl [Ultram] 50 mg PO QID PRN #10 tablet PRN Reason: Pain Warfarin [Coumadin] 2.5 mg PO 1800 #30 tablet Home Medications: Aspirin 81 mg PO DAILY 01/30/16 [History] Atorvastatin [Lipitor] 10 mg PO DAILY 01/30/16 [History] Ferrous Sulfate 324 mg PO DAILY 01/30/16 [History] Loratadine [Allergy Relief] 10 mg PO DAILY 01/30/16 [History] Alendronate Sodium [Fosamax] 70 mg PO QWEEK 07/27/16 [History] Pantoprazole Sodium [Protonix] 40 mg PO DAILY 02/13/17 [History] Atorvastatin [Lipitor] 10 mg PO DAILY tablet 02/19/17 [Rx] Furosemide [Lasix] 20 mg PO DAILY #0 tablet 02/19/17 [Rx] Ipratropium/Albuterol Neb [Duoneb] 3 ml IH [id number] PRN inhsol 02/19/17 [Rx] Tramadol HCl [Ultram] 50 mg PO QID PRN #10 tablet 02/19/17 [Rx] Warfarin [Coumadin] 2.5 mg PO 1800 #30 tablet 02/19/17 [Rx] Allergies/Adverse Reactions: 3 Allergy/AdvReac Type Severity Reaction Status Date / Time No Known Drug Allergies Allergy See Verified 01/30/16 14:46 Comments Date of admission: 02/15/17 14:03 Primary care physician: Brice Mejia MD Consults: 02/12/17 22:48 Consult to Occupational Therapy [CONS] Routine Comment: Evaluate, develop and implement POC Reason for Consult: Left LE weakness, B/L hand tremors, lives alone Consult to Physical Therapy [CONS] Routine Comment: Evaluate, develop and implement POC Reason for Consult: Left LE weakness, B/L hand tremors, lives alone 02/13/17 01:27 Consult to Second Class Welder [CONS] Routine Reason for SW Consult: D/C palnning and home care need evaluation. Discharging clinician: Ramandeep Valentine Anticipated date of discharge: 02/19/17 - Patient Status Disposition: Transfer SNF Condition: Fair Overall status at discharge: patient is progressing back to baseline - Discharge Instructions Instructions: Transient Ischemic Attack (GEN), Atrial Fibrillation (DC), Acute Kidney Injury (DC), Acute Kidney Injury (GEN), Anemia (GEN) Follow Up With: Brice Mejia MD [Primary Care Provider] - 02/20/17 1:45 pm Additional Instructions: Please follow up with your primary care physician within five days after your discharge from the hospital. Please follow up with your neurologist within one week after your discharge from the hospital. Lasix and Coumadin have been added to your home medications Follow up with your primary care physician for monitoring of your INR. Monitor your INR weekly Resume all other home meds as prescribed by your primary care physician. - Diet and Activity Activity: as per physical therapy Diet: low fat, low cholesterol, low salt diet Hospital course: Mr. Johnson is a 81 year old male patient with a history of prior CVA and hypertension who was up and was brought into the ER with complaints of slurred speech and possible left-sided weakness. His symptoms had been going on for 2- 3 days prior to presentation. The patient was only complaining mainly of acute on chronic back pain. He also reported that his left leg weakness was chronic for him. Nevertheless he was hospitalized workup for possible TIA. He underwent MRI of the brain which did not show any acute infarct. He did have 40 -50% carotid stenosis bilaterally. He has been on aspirin and statin which he will continue to take. Physical therapy was consulted and they recommended placing patient in inpatient swing bed. 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 Medically, he is stable for discharge once ECF placement is arranged. - Time Spent with Patient Total time spent providing and/or coordinating discharge services: Greater than 30 minutes - Constitutional Vitals: Temp Pulse Resp BP Pulse Ox 98.2 F 84 14 111/80 96 02/19/17 07:40 02/19/17 07:40 02/19/17 07:40 02/19/17 07:40 02/19/17 07:40 General appearance: Present: cooperative, A&O X 3, no acute distress, answers questions appropriately - Head Head exam: Present: atraumatic, normocephalic - Eye Eye exam: Present: conjuntiva pink, sclera anicteric - Respiratory Respiratory exam: Absent: respiratory distress, wheezes - Cardiovascular Cardiovascular exam: Present: irregular rhythm, +S1, +S2. Absent: diastolic murmur, gallop, rubs, systolic murmur - GI/Abdominal GI/Abdominal exam: Present: normal bowel sounds, soft, no peritoneal signs. Absent: distended, tenderness - Extremities Exam Extremities exam: Present: warm, radial pulses palpable and symmetrical. Absent : calf tenderness, cyanotic, pedal edema - Neurological Exam Neurological exam: Present: alert, oriented X3, strengths equal and symetr throughout. Absent: pronater drift, facial droop - Psychiatric Psychiatric exam: Present: normal affect, normal mood
--- NOTE | 2017-02-19 16:54 | Physician Discharge Referral ---
ExtendedCare Referral Info Transfer To: F Provider in Charge after Transfer: PCP Institutional Level of Care: Skilled - Diagnosis (1) Atrial fibrillation and flutter Priority: Secondary Status: Acute (2) Diastolic heart failure Priority: Secondary Status: Chronic (3) TIA (transient ischemic attack) Priority: Primary Status: Acute - Transfer Medications Prescriptions: Tramadol HCl [Ultram] 50 mg PO QID PRN #10 tablet PRN Reason: Pain Warfarin [Coumadin] 2.5 mg PO 1800 #30 tablet Home Medications: Aspirin 81 mg PO DAILY 01/30/16 [History] Atorvastatin [Lipitor] 10 mg PO DAILY 01/30/16 [History] Ferrous Sulfate 324 mg PO DAILY 01/30/16 [History] Loratadine [Allergy Relief] 10 mg PO DAILY 01/30/16 [History] Alendronate Sodium [Fosamax] 70 mg PO QWEEK 07/27/16 [History] Pantoprazole Sodium [Protonix] 40 mg PO DAILY 02/13/17 [History] Atorvastatin [Lipitor] 10 mg PO DAILY tablet 02/19/17 [Rx] Furosemide [Lasix] 20 mg PO DAILY #0 tablet 02/19/17 [Rx] Ipratropium/Albuterol Neb [Duoneb] 3 ml IH [id number] PRN inhsol 02/19/17 [Rx] Tramadol HCl [Ultram] 50 mg PO QID PRN #10 tablet 02/19/17 [Rx] Warfarin [Coumadin] 2.5 mg PO 1800 #30 tablet 02/19/17 [Rx] Allergies/Adverse Reactions: 3 Allergy/AdvReac Type Severity Reaction Status Date / Time No Known Drug Allergies Allergy See Verified 01/30/16 14:46 Comments - Respiratory Orders Smoking Cessation: Smoking cessation has been advised. For more information, call the [place] Tobacco Quit Line at 6-321-IVLI-NOW. - Lab Orders Lab Orders: Other (include drug levels w/frequency) (INR QWEEKLY GOAL INR:2-3) CERTIFICATION: I certify that the transfer of the above named patient to an Extended Care Facility is necessary for the continuing treatment of the diagnosis listed. The above information is true and accurate reflection of patient's current condition. Confidential - Redisclosure prohibited without a patient's written consent.
[2017-02-20 06:41] LABS: INR 2.9; Prothrombin Time 31.6 Seconds (9.4-12.1)
[2017-02-20] MEDS: Acetaminophen 325 MG TABLET PO PRN (09:03)
[2017-02-20] MEDS: Furosemide 20 MG TABLET PO SCH (09:03)
[2017-02-20] MEDS: Aspirin 81 MG TAB.CHEW PO SCH (09:03)
--- NOTE | 2017-02-20 10:48 | Internal Med Progress Note ---
Date of Encounter: 02/20/17 Time of Encounter: 10:46 - Assessment and plan (1) Atrial fibrillation and flutter Status: Acute (2) Diastolic heart failure Status: Chronic Qualifiers: Heart failure chronicity: acute on chronic Qualified Code(s): I50.33 - Acute on chronic diastolic (congestive) heart failure (3) TIA (transient ischemic attack) Status: Acute Qualifiers: Transient cerebral ischemia type: other Qualified Code(s): G45.8 - Other transient cerebral ischemic attacks and related syndromes - Subjective Interval history: Patient seen and examined at bedside. Resting in bed and denies any discomfort. He was discharged to ECF yesterday, discharge pending insurance approval Pt is stable for discharge to ECF if he gets approved for ECF today. (1) Atrial fibrillation and flutter Priority: Secondary Status: Acute (2) Diastolic heart failure Priority: Secondary Status: Chronic Qualifiers: Heart failure chronicity: acute on chronic Qualified Code(s): I50.33 - Acute on chronic diastolic (congestive) heart failure (3) TIA (transient ischemic attack) Priority: Primary Status: Acute Qualifiers: Transient cerebral ischemia type: other Qualified Code(s): G45.8 - Other transient cerebral ischemic attacks and related syndromes - Constitutional Vitals: Temp Pulse Resp BP Pulse Ox 98.0 F 90 14 106/68 98 02/20/17 07:24 02/20/17 07:24 02/20/17 07:24 02/20/17 07:24 02/20/17 07:24 General appearance: Present: cooperative, A&O X 3, no acute distress, answers questions appropriately - Head Head exam: Present: atraumatic, normocephalic - Eye Eye exam: Present: conjuntiva pink, sclera anicteric - Respiratory Respiratory exam: Present: CTAB. Absent: respiratory distress, wheezes - Cardiovascular Cardiovascular exam: Present: irregular rhythm, +S1, +S2 - GI/Abdominal GI/Abdominal exam: Present: normal bowel sounds, soft, no peritoneal signs. Absent: distended, tenderness - Extremities Exam Extremities exam: Present: warm, radial pulses palpable and symmetrical. Absent : calf tenderness, pedal edema - Neurological Exam Neurological exam: Present: alert, oriented X3 Internal Medicine: Result - Labs CBC & Chem 7: 02/17/17 03:34 02/17/17 03:34 - ABG Interpretation ABG results: PT/INR, D-dimer PT 31.6 Seconds (9.4-12.1) H 02/20/17 06:12 Consult Discharge Plan - Plan Instructions: Transient Ischemic Attack (GEN), Atrial Fibrillation (DC), Acute Kidney Injury (DC), Acute Kidney Injury (GEN), Anemia (GEN) Additional Instructions: Please follow up with your primary care physician within five days after your discharge from the hospital. Please follow up with your neurologist within one week after your discharge from the hospital. Lasix and Coumadin have been added to your home medications Follow up with your primary care physician for monitoring of your INR. Monitor your INR weekly Resume all other home meds as prescribed by your primary care physician. Referrals: Brice Mejia MD [Primary Care Provider] - 02/20/17 1:45 pm Prescriptions: Tramadol HCl [Ultram] 50 mg PO QID PRN #10 tablet PRN Reason: Pain Warfarin [Coumadin] 2.5 mg PO 1800 #30 tablet
[2017-02-20 11:18] VITALS: BP 103/64
[2017-02-20] MEDS ORDERED: *HR* Warfarin 2.5 MG TABLET PO SCH (18:00)
== END 2017-02-20 12:05 | DRG 308 ==
LOC: 2NENU → SUATTDRO 20:06
PROVIDERS: ADMIT Internal Medicine Nephrology; ATTEND Internal Medicine